=== PATIENT | male | born 2000 | race African-American/Black ===

== ENCOUNTER 2020-02-07 12:03 | Outpatient (REF) | payer MEDICAID, SELFPAY | END 2020-02-07 12:04 | disposition home or self-care (01) | LOC: HO.LAB 12:03 | PROVIDERS: PCP Pediatrics; Visit Provider Internal Medicine | DX: Z20.828 Contact with and (suspected) exposure to other viral communicable diseases (principal) | CPT/HCPCS: U0003 ==

== ENCOUNTER 2020-03-04 17:19 | Emergency (ER) | payer MEDICAID, SELFPAY ==
--- NOTE | 2020-03-04 18:46 | ED_ITS ---
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 Onset (ago): minute(s) Extremity Location: left: hand (Middle finger) Place: work Patient tetanus UTD: No (States he has a anti vacs her and does not want to have any vaccinations) Context: accidental Associated symptoms: none Treatments prior to arrival: bandage Related Data Allergies Allergy/AdvReac Type Severity Reaction Status Date / Time No Known Allergies Allergy Unverified 12/26/19 16:53 Review of Systems Review of Systems: Constitutional: No Weight loss, No Fever, No Chills, No Night Sweats, No Fatigue, No Malaise ENT/Mouth: No Hearing loss, No Ear Pain, No Nasal Congestion, No Sinus Pain, No Hoarseness, No sore throat, No Rhinorrhea, No Swallowing Difficulty Eyes: No Eye Pain, No Swelling, No Redness, No Foreign Body, No Discharge, No Vision Changes Cardiovascular: No Chest Pain, No SOB, No Dyspnea on Exertion Respiratory: No Cough, No Sputum, No Wheezing, No Smoke Exposure, No Dyspnea Musculoskeletal: No joint pain, No Myalgias, No Joint Swelling, as noted Skin: No Skin Lesions, No rash Neuro: No Weakness, No Numbness, No Paresthesias, No Loss of Consciousness, No Dizziness, No Headache Psych: No Anxiety/Panic, No Depression, No SI/HI/AH/VH, No Social Issues Heme/Lymph: No Bruising, No Bleeding,No Lymphadenopathy Endocrine: No Polyuria, No Polydipsia, No Temperature Intolerance Yes all other systems are reviewed and are negative [facility] Past Medical History Medical History No known health problems Social History Social History Smoked in Last 30 Days: No Use of substances other than those prescribed or required for medical reasons: No Advance Directives: No Advance Directives Information Provided: Yes Physical Exam Vital Signs: Vital Signs: Last Vital Signs Temp 99 F 03/04/20 18:50 Pulse 78 03/04/20 18:50 Resp 16 03/04/20 18:50 BP 148/77 H 03/04/20 18:50 Pulse Ox 100 03/04/20 18:50 Body Mass Index 33.5 Reviewed Const: General: cooperative and healthy appearing; No acute distress or intoxicated appearing Nutritional Appearance: average body habitus Orientation/consciousness: patient oriented x3 HENMT: Head: Yes normal to inspection Ears: hearing grossly normal bilaterally Eyes: General: appearance normal, both eyes and all related structures Visual Le: normal visual le by confrontation Neck: Neck: Yes normal visual inspection, No positive Brudzinski's sign, No positive Kernig's sign and No tender Thyroid: Thyroid normal Chest: Chest palpation & inspection: normal inspection of the chest Resp: Effort & Inspection: normal respiratory effort Cardio: Jugular venous distension: no JVD GI: Inspection: Yes normal to inspection Percussion: Yes normal to percussion Auscultation: normal bowel sounds : General: Yes no CVA tenderness Back/Spine/Pelvis: Back: no CVA tenderness Skin: General skin exam: no rashes or lesions noted Neuro: General: patient oriented x3 Extrem: General: Yes normal to inspection Hand/finger images: 1. 1 cm superficial laceration to the middle phalanx fat pad. Full range of motion. No active bleeding. Grasps strong. Only exposed adipose tissue no deep tissue exposure. Procedures Laceration Laceration 1: Site: hand (Left middle finger, mid phalanx palmar aspect) Side (If applicable): left Size (cm): 1 Description: linear Depth: simple, single layer Local Anesthetic: lidocaine 1% Amount of anesthesia used (mL): 3 Pre-repair: wound explored Skin layer closed with: nylon Size (cm): 4-0 Number of sutures: 2 Technique: simple, interrupted MDM - Wound/Laceration MDM Narrative Medical decision making narrative: Superficial laceration to the left middle finger middle phalanx fat pad without any limitation involvement repaired with 2 superficial sutures please refer to procedure note. Declined vaccination as he does not have any vaccinations and does wanted. He verbalized understanding. Given topical dressing and. Will follow-up with [facility] with return follow-up instruction clear provided. Differential Diagnosis Differential diagnosis: Likely laceration; Unlikely abscess, abrasion and avulsion of skin Medical Records Attestation: I reviewed the patient's medical records. Lab Data Attestation: I reviewed the patient's lab results. Discharge Plan Discharge Clinical Impression: Laceration of finger Qualifiers: Encounter type: initial encounter Finger: middle finger Damage to nail status: without damage Foreign body presence: without foreign body Laterality: left Qualified Code(s): S61.213A - Laceration without foreign body of left middle finger without damage to nail, initial encounter Patient Disposition: Home, Self-Care Instructions: Finger Laceration (ED) Additional Instructions: Today you suffered a superficial finger laceration to the left middle finger. This occurred at work today 03/04/2020 This required 2 superficial stitches to repair The stitches are nonabsorbable in need to be removed in 7 days Where this finger splint for comfort and allow the healing process to happen Monitor for any signs of infection including redness, swelling, discharge, pain If any of this occurs return sooner Otherwise he can return to emergency room or the [facility] to have the stitches removed Thank you Referrals: [facility] [Provider Group] - 2 days Stand Alone Forms: Work/School Release
[2020-03-04 18:50] VITALS: BP 148/77; PULSE 78; RESP 16; TEMP 37.2; O2SAT 100; BMI 33.5
== END 2020-03-04 19:15 | disposition home or self-care (01) ==
PROVIDERS: Emergency Provider Emergency Medicine; PCP Pediatrics
DX: S61.213A Laceration without foreign body of left middle finger without damage to nail, initial encounter (principal); M79.642 Pain in left hand; W26.8XXA Contact with other sharp object(s), not elsewhere classified, initial encounter; Y93.9 Activity, unspecified; Y92.9 Unspecified place or not applicable; Y99.9 Unspecified external cause status
CPT/HCPCS: 12001; 99284

== ENCOUNTER 2020-04-20 13:40 | Outpatient (REF) | payer MEDICAID, SELFPAY | END 2020-04-20 13:41 | disposition home or self-care (01) | LOC: HO.LAB 13:40 | PROVIDERS: Visit Provider Internal Medicine | DX: Z20.822 Contact with and (suspected) exposure to COVID-19 (principal) | CPT/HCPCS: 36415; C9803; U0003 ==

== ENCOUNTER 2020-07-01 20:57 | Emergency (ER) | payer OTHER, SELFPAY ==
[2020-07-01 21:20] VITALS: BP 151/82; PULSE 77; RESP 16; TEMP 36.8; O2SAT 99; BMI 35.3
[2020-07-01] MEDS: Ibuprofen 800 MG TABLET PO (22:36)
[2020-07-01] MEDS: Diphth,Pertus(ACell),Tet Adult 0.5 ML SYRINGE IM (22:36)
[2020-07-01] MEDS: oxyCODONE HCl Immed Release 5 MG TABLET PO (22:36)
--- NOTE | 2020-07-01 23:08 | ED_ITS ---
HPI - Wound/Laceration General Chief Complaint: Wound/Laceration <HOANG Valentine - Last Filed: 07/01/20 23:18> Stated Complaint: Finger injury/work injury <HOANG Valentine - Last Filed: 07/01/20 23:18> Time Seen by Provider: 07/01/20 22:25 <HOANG Valentine - Last Filed: 07/01/20 23:18> Source: patient <HOANG Valentine Last Filed: 07/01/20 23:18> Mode of arrival: ambulatory <HOANG Valentine - Last Filed: 07/01/20 23:18> History of Present Illness HPI narrative: 19-year-old male presenting to the ED with complaints of a laceration to his left hand middle finger with a knife while at work. Reports he is not up-to-date on tetanus. Denies any fevers, numbness/tingling/paresthesias or any other injuries complaints or concerns at this time. This was a work related injury. <HOANG Valentine - Last Filed: 07/01/20 23:18> Onset (ago): minute(s) (Prior to arrival) <HOANG Valentine - Last Filed: 07/01/20 23:18> Location: other (Left hand middle finger) <HOANG Valentine - Last Filed: 07/01/20 23:18> Place: work <HOANG Valentine - Last Filed: 07/01/20 23:18> Patient tetanus UTD: No <HOANG Valentine - Last Filed: 07/01/20 23:18> Context: accidental <HOANG Valentine - Last Filed: 07/01/20 23:18> Associated symptoms: none <HOANG Valentine Last Filed: 07/01/20 23:18> Treatments prior to arrival: tourniquet and other (Towel) <HOANG Valentine Last Filed: 07/01/20 23:18> Related Data Home Medications: Previous Rx's Medication Instructions Recorded acetaminophen [Tylenol Extra 1,000 mg PO QID PRN #14 tab 07/01/20 Strength] cephalexin 500 mg PO BID 10 Days #20 cap 07/01/20 ibuprofen 800 mg PO Q8H PRN #14 tab 07/01/20 oxycodone 5 mg PO BID PRN #10 tab 07/01/20 <HOANG Valentine - Last Filed: 07/01/20 23:18> Allergies/Adverse Reactions: Allergies Allergy/AdvReac Type Severity Reaction Status Date / Time No Known Allergies Allergy Unverified 07/04/20 14:07 <HOANG Valentine - Last Filed: 07/01/20 23:18> Review of Systems Review of Systems: Constitutional : No Fever, No Chills, Cardiovascular : No Chest Pain, No SOB Respiratory : No Dyspnea Gastrointestinal : No abdominal pain Musculoskeletal : No Joint Swelling Skin : positive skin laceration, No Foreign bodies, No rash, No surrounding erythema Neuro : No Weakness, No Numbness/tingling Psych : No SI/HI/thoughts of self injury <HOANG Valentine - Last Filed: 07/01/20 23:18> Yes all other systems are reviewed and are negative <HOANG Valentine - Last Filed: 07/01/20 23:18> [facility] Past Medical History Attestation statement: The following information was validated with the patient. <HOANG Valentine - Last Filed: 07/01/20 23:18> Medical History: Medical History No known health problems <HOANG Valentine - Last Filed: 07/01/20 23:18> Social History Social History: Social History Alcohol intake: never Smoking Status: Never smoker <HOANG Valentine - Last Filed: 07/01/20 23:18> Physical Exam Vital Signs: Vital Signs: Last Vital Signs Temp 98.3 F 07/01/20 21:20 Pulse 77 07/01/20 21:20 Resp 16 07/01/20 21:20 BP 151/82 H 07/01/20 21:20 Pulse Ox 99 07/01/20 21:20 Body Mass Index 35.3 vital signs have been reviewed as normal and appeared to be correct. Blood pressure hypertensive at 151/82. Heart rate normal. Respiration rate normal. Temperature normal. Oxygen saturation normal. <HOANG Valentine - Last Filed: 07/01/20 23:18> Vital Signs: Last Vital Signs Temp 98.3 F 07/01/20 21:20 Pulse 77 07/01/20 21:20 Resp 16 07/01/20 21:20 BP 151/82 H 07/01/20 21:20 Pulse Ox 99 07/01/20 21:20 Body Mass Index 35.3 <Osito Andres MD - Last Filed: 07/21/20 06:21> Appearance: Alert. Oriented X3. No acute distress. Head: Normal external exam. Normocephalic. Atraumatic. Eyes: PERRLA. EOMI. Conjunctiva and sclera normal. Eyelids normal. ENT: Pharynx normal. Uvula midline. Moist mucous membranes. Neck: Normal inspection. Neck supple. FROM. No adenopathy. No meningeal signs. No neck mass noted. CVS: Normal heart rate and rhythm. Heart sound normal. No murmurs noted. Pulses normal throughout. Respiratory: No respiratory distress. Painless inspiration. Breath sounds normal. No wheezes/rales/rhonchi noted. Chest nontender. No accessory muscle usage noted or decreased air movement noted. Back: Full range of motion noted. Skin: Skin warm and dry. Normal skin color. Normal skin turgor. No rashes/lesions/lacerations noted. Extremities: To left hand middle finger at the distal aspect ulnar aspect patient has a 2 cm avulsion laceration involves partial nail mild active bleeding noted. No arterial bleeding noted. Pulses are normal. No bony deformity noted. No bony tenderness noted. Patient has full range of motion of finger. No laxity noted. Otherwise all other Extremities exhibit normal range of motion and nontender. Neuro: Oriented X 3. No motor deficit. No sensory deficit. Reflexes normal. <HOANG Valentine - Last Filed: 07/01/20 23:18> Course Course Course Narrative: 19-year-old male presenting to the ED with complaints of a laceration to his left hand middle finger with a knife while at work. - on exam patient has avulsion laceration no bony tenderness. Mild active bleeding no arterial bleeding noted. Surgicel was placed with tube gauze finger dressing and bleeding is controlled after 40 minutes of patient being in the emergency department. No imaging indicated at this time. Had a tetanus update at this time. Will DC home with symptomatic treatment and antibiotics and instructions to return if any new or worsening symptoms and to soak his finger in 3-5 days to remove the Surgicel. Patient understands agrees with this plan. <HOANG Valentine - Last Filed: 07/01/20 23:18> I have reviewed the chart <Osito Andres MD - Last Filed: 07/21/20 06:21> MDM - Wound/Laceration Medical Records Attestation: I reviewed the patient's medical records. <HOANG Valentine - Last Filed: 07/01/20 23:18> Discharge Plan Discharge Clinical Impression: Laceration <HOANG Valentine - Last Filed: 07/01/20 23:18> Patient Disposition: Home, Self-Care <HOANG Valentine - Last Filed: 07/01/20 23:18> Instructions: Laceration (ED) <HOANG Valentine - Last Filed: 07/01/20 23:18> Additional Instructions: We placed Surgicel on your finger please remove the bulky dressing on top then placed the Surgicel dressing which is the yellow dressing with the medicine that I placed on you before the bulky white dressing and soak it in water until it comes off by itself do not rip it off within 3-5 days. Return if any new or worsening symptoms and follow up with her primary care provider. <HOANG Valentine - Last Filed: 07/01/20 23:18> Prescriptions: New ibuprofen 800 mg tablet 800 mg PO Q8H PRN (Reason: pain) Qty: 14 RF: 0 acetaminophen [Tylenol Extra Strength] 500 mg tablet 1,000 mg PO QID PRN (Reason: fever or pain) Qty: 14 RF: 0 cephalexin 500 mg capsule 500 mg PO BID 10 Days Qty: 20 RF: 0 oxycodone 5 mg tablet 5 mg PO BID PRN (Reason: pain) Qty: 10 RF: 0 <HOANG Valentine - Last Filed: 07/01/20 23:18> Referrals: Estela Downs MD [Physician] - 1 week (As needed) <HOANG Valentine Last Filed: 07/01/20 23:18> Stand Alone Forms: Work/School Release <HOANG Valentine - Last Filed: 07/01/20 23:18> Interventions: ED Discharge Assessment Last Done: 07/01/20 23:43 <HONAG Valentine - Last Filed: 07/01/20 23:18> Discharge Date/Time: 07/01/20 23:44 <HOANG Valentine - Last Filed: 07/01/20 23:18> Print Language: Eritrean <HOANG Valentine - Last Filed: 07/01/20 23:18>
== END 2020-07-01 23:44 | disposition home or self-care (01) ==
PROVIDERS: Emergency Provider Emergency Medicine
DX: S61.213A Laceration without foreign body of left middle finger without damage to nail, initial encounter (principal); M79.642 Pain in left hand; W26.0XXA Contact with knife, initial encounter; Y93.9 Activity, unspecified; Y92.9 Unspecified place or not applicable; Y99.0 Civilian activity done for income or pay; Z79.899 Other long term (current) drug therapy
CPT/HCPCS: 90471; 90715; 96372; 99284

== ENCOUNTER 2020-07-04 14:06 | Emergency (ER) | payer OTHER, SELFPAY ==
[2020-07-04 14:07] VITALS: BP 130/67; PULSE 66; RESP 18; TEMP 36.3; O2SAT 98; BMI 34.7
--- NOTE | 2020-07-04 15:11 | ED_ITS ---
HPI - Wound/Laceration General Chief Complaint: Wound/Laceration Stated Complaint: wound check Time Seen by Provider: 07/04/20 14:19 Source: patient Mode of arrival: ambulatory History of Present Illness HPI narrative: 19-year-old male with a past medical history of recent distal finger avulsion/laceration presenting to the ED for Surgicel removal/wound recheck. Patient was seen and treated in the ED on 07/01/20, had Surgicel placed on wound and reports was unable to remove dressing at home. Denies fever, chills, drainage from area, numbness, tingling Related Data Previous Rx's Medication Instructions Recorded acetaminophen [Tylenol Extra 1,000 mg PO QID PRN #14 tab 07/01/20 Strength] cephalexin 500 mg PO BID 10 Days #20 cap 07/01/20 ibuprofen 800 mg PO Q8H PRN #14 tab 07/01/20 oxycodone 5 mg PO BID PRN #10 tab 07/01/20 Allergies Allergy/AdvReac Type Severity Reaction Status Date / Time No Known Allergies Allergy Unverified 07/04/20 14:07 Review of Systems Review of Systems: Constitutional: No Fever, No Chills Skin: +laceration, No rash Neuro: No Weakness, No Numbness, No Paresthesias Yes all other systems are reviewed and are negative [facility] Past Medical History Attestation statement: The following information was validated with the patient. Medical History No known health problems Social History Social History Alcohol intake: never Smoking Status: Never smoker Smoked in Last 30 Days: No Use of substances other than those prescribed or required for medical reasons: No Advance Directives: No Advance Directives Information Provided: Yes Physical Exam Vital Signs: Vital Signs: Last Vital Signs Temp 97.4 F 07/04/20 14:07 Pulse 66 07/04/20 14:07 Resp 18 07/04/20 14:07 BP 130/67 07/04/20 14:07 Pulse Ox 98 07/04/20 14:07 Body Mass Index 34.7 Const: General: cooperative and healthy appearing Orientation/consciousness: patient oriented x3 Limitations: no limitations HENMT: Head: Yes normal to inspection Ears: hearing grossly normal bilaterally General nose exam: Normal external nose present Face and sinus: Yes normal facial exam Eyes: General: appearance normal, both eyes and all related structures EOM: EOMs intact bilaterally Neck: Neck: Yes normal visual inspection Resp: Effort & Inspection: normal respiratory effort Cardio: Rate: regular rate Peripheral pulses: radial pulses present Skin: Other: Surgicel intact to distal left middle finger. Skin avulsion noted to lateral aspect of distal left middle finger with partial nail involvement. No signs cellulitis or active infection. No fluctuance induration or streaking. Areas clean Rashes: no rashes Neuro: General: patient oriented x3 Gait exam (Neuro): Normal gait present Course Course Course Narrative: Surgicel stuck/intact. Will soak in saline to attempt removal -after long duration of finger soaked in saline Surgicel was successfully removed. Remaining hand was washed Surgicel debris and applied Dermabond to avulsion for protection. Discussed with patient to continue previously prescribed antibiotics, worrisome signs and symptoms and strict return precautions discussed. He verbalized understanding feel safe for discharge home Procedures Laceration Laceration 1: Site: upper extremity Side (If applicable): left Description: irregular and clean Skin layer closed with: other (Dermabond) Discharge Plan Discharge Clinical Impression: Avulsion of skin Patient Disposition: Home, Self-Care Instructions: Skin Avulsion (ED), Skin Adhesive Care (ED) Additional Instructions: The Surgicel was removed from your avulsion, Dermabond/skin glue was applied, keep dry and clean, this will follow-up on its own, continue taking previously prescribed antibiotic, area begins to look infected, is red, there streaking, has drainage, you fever return to the ED Otherwise you should be evaluated in 5 days by her primary care doctor Prescriptions: No Action ibuprofen 800 mg tablet 800 mg PO Q8H PRN (Reason: pain) Qty: 14 RF: 0 acetaminophen [Tylenol Extra Strength] 500 mg tablet 1,000 mg PO QID PRN (Reason: fever or pain) Qty: 14 RF: 0 cephalexin 500 mg capsule 500 mg PO BID 10 Days Qty: 20 RF: 0 oxycodone 5 mg tablet 5 mg PO BID PRN (Reason: pain) Qty: 10 RF: 0 Referrals: Physician,Unknown [Primary Care Provider] - 5 days (For wound check)
--- NOTE | 2020-07-04 15:52 | PC.NURSE ---
FINGER SOAKED IN NS, SURGICEL REMOVED, FINGER WASHED, DERMABOND TO BEDSIDE FOR PA TO APPLY
== END 2020-07-04 16:40 | disposition home or self-care (01) ==
PROVIDERS: Emergency Provider Emergency Medicine
DX: S61.313D Laceration without foreign body of left middle finger with damage to nail, subsequent encounter (principal); X58.XXXD Exposure to other specified factors, subsequent encounter
CPT/HCPCS: 12001; 99283

== ENCOUNTER → 2022-07-08 08:38 | Outpatient (BNVA) | payer SELFPAY | PROVIDERS: Visit Provider Physician Assistant Medical | DX: Z02.79 Encounter for issue of other medical certificate (principal) ==